=== PATIENT | female | born 1985 | race African-American/Black ===

== ENCOUNTER 2018-03-22 10:55 | Outpatient (CLI) | payer SELFPAY ==
[2018-03-22 19:28] LABS: BASOPHILS # (AUTO) 0.1 10^3/uL (0.0-0.1); BASOPHILS % (AUTO) 0.5 %; EOSINOPHILS # (AUTO) 0.1 10^3/uL (0.0-0.7); EOSINOPHILS % (AUTO) 1.1 %; HGB - HEMOGLOBIN 12.1 g/dL (12.0-16.0); LYMPHOCYTES # (AUTO) 3.6 10^3/uL (1.5-3.5); LYMPHOCYTES % (AUTO) 36.7 %; MEAN CORPUSCULAR HGB CONC 30.9 g/dL (32.0-36.0); MEAN CORPUSCULAR VOLUME 84.3 fL (81.0-99.0); MONOCYTES # (AUTO) 0.5 10^3/uL (0.0-1.0); MONOCYTES % (AUTO) 4.7 %; NEUTROPHILS # (AUTO) 5.5 10^3/uL (1.5-6.6); PLT - PLATELET COUNT 314 10^3/uL (130-450); RED BLOOD COUNT 4.66 10^6/uL (4.20-5.40); RED CELL DISTRIBUTION WIDTH 15.5 % (12.0-15.0); WHITE BLOOD COUNT 9.7 x10^3/uL (4.8-10.8)
[2018-03-22 19:40] LABS: ALBUMIN 3.9 g/dL (3.2-5.5); BILIRUBIN,TOTAL 0.3 mg/dL (0.2-1.0); CALCIUM 8.6 mg/dL (8.5-10.3); CREATININE 0.7 mg/dL (0.4-1.0); TOTAL PROTEIN 7.9 g/dL (6.7-8.2)
== END 2018-03-22 23:59 | disposition home or self-care (01) ==
LOC: LAB.WCP 10:55
PROVIDERS: ATTEND Family Medicine
DX: G93.2 Benign intracranial hypertension (principal)
CPT/HCPCS: 36415; 80053; 84702; 85025

== ENCOUNTER 2018-04-21 13:34 | Outpatient (CLI) | payer OTHER ==
--- NOTE | 2018-04-21 15:07 | CT Report ---
Reason: HEMATURIA Procedure Date: 04/21/2018 Accession Number: [id number] / [id number] Procedure: CT - Abdomen/Pelvis W/O CPT Code: FULL RESULT: EXAM: CT ABDOMEN AND PELVIS (CT KUB) EXAM DATE: 04/21/2018 02:47 PM. CLINICAL HISTORY: Hematuria. COMPARISONS: None. TECHNIQUE: Routine axial helical CT imaging was performed through the abdomen and pelvis without IV contrast. Reconstructions: Coronal and sagittal. In accordance with CT protocol optimization, one or more of the following dose reduction techniques were utilized for this exam: automated exposure control, adjustment of mA and/or KV based on patient size, or use of iterative reconstructive technique. FINDINGS: Lung Bases: Unremarkable. Right Kidney/Ureter: No stones, hydronephrosis, or hydroureter. No perinephric fat stranding. Left Kidney/Ureter: No stones, hydronephrosis, or hydroureter. No perinephric fat stranding. Other Solid Organs: Noncontrast images of the solid organs are grossly unremarkable. Gallbladder/Bile Ducts: Unremarkable. Peritoneal Cavity: No free fluid, free air or brendon adenopathy. Bowel is grossly unremarkable. The patient is status post appendectomy and cholecystectomy. Pelvic Organs: No bladder stones or wall thickening. Noncontrast images of the visualized pelvic organs are unremarkable with the exception of an appropriately positioned intrauterine device. Vasculature: Unremarkable. Other: None. IMPRESSION: No urinary tract stones or obstruction. RADIA
== END 2018-04-21 13:35 | disposition home or self-care (01) ==
LOC: DI 13:34
PROVIDERS: ATTEND Physician Assistant Medical
DX: R31.9 Hematuria, unspecified (principal)
CPT/HCPCS: 74176

== ENCOUNTER 2018-05-02 17:20 | Outpatient (CLI) | payer OTHER ==
[2018-05-02 17:44] LABS: BASOPHILS # (AUTO) 0.1 10^3/uL (0.0-0.1); BASOPHILS % (AUTO) 0.6 %; EOSINOPHILS # (AUTO) 0.1 10^3/uL (0.0-0.7); EOSINOPHILS % (AUTO) 0.9 %; HGB - HEMOGLOBIN 12.4 g/dL (12.0-16.0); LYMPHOCYTES # (AUTO) 3.2 10^3/uL (1.5-3.5); LYMPHOCYTES % (AUTO) 30.4 %; MEAN CORPUSCULAR HEMOGLOBIN 26.1 pg (27.0-31.0); MEAN CORPUSCULAR HGB CONC 31.8 g/dL (32.0-36.0); MEAN CORPUSCULAR VOLUME 82.2 fL (81.0-99.0); MEAN PLATELET VOLUME 9.3 fL (7.9-10.8); MONOCYTES # (AUTO) 0.6 10^3/uL (0.0-1.0); MONOCYTES % (AUTO) 5.6 %; NEUTROPHILS # (AUTO) 6.7 10^3/uL (1.5-6.6); NEUTROPHILS % (AUTO) 62.5 %; PLT - PLATELET COUNT 311 10^3/uL (130-450); RED BLOOD COUNT 4.73 10^6/uL (4.20-5.40); WHITE BLOOD COUNT 10.7 x10^3/uL (4.8-10.8)
[2018-05-02 18:11] LABS: ALBUMIN 3.9 g/dL (3.2-5.5); ALBUMIN/GLOBULIN RATIO 0.9 (1.0-2.2); ALKALINE PHOSPHATASE 135 IU/L (42-121); ALT ALANINE AMINOTRANSFERASE 14 IU/L (10-60); AST ASPARTATE AMINOTRANSFERASE 16 IU/L (10-42); BILIRUBIN,TOTAL < 0.2 mg/dL (0.2-1.0); BUN - BLOOD UREA NITROGEN 14 mg/dL (6-20); CALCIUM 8.8 mg/dL (8.5-10.3); CARBON DIOXIDE - CO2 24 mmol/L (21-32); CHLORIDE 107 mmol/L (101-111); CREATININE 0.8 mg/dL (0.4-1.0); GFR - MDRD 100 (>89); GLUCOSE 106 mg/dL (70-100); LIPASE 36 U/L (22-51); SODIUM 139 mmol/L (135-145); TOTAL PROTEIN 8.3 g/dL (6.7-8.2)
== END 2018-05-02 17:21 | disposition home or self-care (01) ==
LOC: LAB 17:20
PROVIDERS: ATTEND Physician Assistant Medical
DX: R10.32 Left lower quadrant pain (principal)
CPT/HCPCS: 36415; 80053; 83690; 85025

== ENCOUNTER 2018-07-04 16:38 | Outpatient (CLI) | payer OTHER | END 2018-07-04 23:59 | disposition home or self-care (01) | LOC: LAB.R 16:38 | PROVIDERS: ATTEND Physician Assistant Medical | DX: J02.9 Acute pharyngitis, unspecified (principal) | CPT/HCPCS: 87070 ==

== ENCOUNTER 2018-08-12 08:00 | Outpatient (CLI) | payer OTHER | END 2018-08-12 23:59 | disposition home or self-care (01) | LOC: LAB.R 08:00 | PROVIDERS: ATTEND Nurse Practitioner | DX: J06.9 Acute upper respiratory infection, unspecified (principal); R53.83 Other fatigue | CPT/HCPCS: 87070; 87205 ==

== ENCOUNTER 2018-10-11 09:38 | Outpatient (CLI) | payer OTHER | END 2018-10-11 09:39 | disposition home or self-care (01) | LOC: LAB.WCP 09:38 | PROVIDERS: ATTEND Family Medicine | DX: J02.9 Acute pharyngitis, unspecified (principal) | CPT/HCPCS: 87070 ==

== ENCOUNTER 2018-11-09 08:00 | Outpatient (CLI) | payer OTHER ==
[2018-11-09 23:23] LABS: TRICHOMONAS VAGINALIS DNA NEGATIVE (NEGATIVE)
== END 2018-11-09 08:01 | disposition home or self-care (01) ==
LOC: LAB.R 08:00
PROVIDERS: ATTEND Family Medicine
DX: N76.0 Acute vaginitis (principal); N39.0 Urinary tract infection, site not specified
CPT/HCPCS: 87086; 87491; 87591; 87661

== ENCOUNTER 2018-12-11 18:30 | Emergency (ER) | payer OTHER ==
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
[2018-12-11] MEDS ORDERED: ONDANSETRON ODT 4 MG TABLET TL STA (20:03)
[2018-12-11] MEDS ORDERED: MAG HYDROX/AL HYDROX/SIMETH 30 ML UDC PO STA (20:04)
[2018-12-11 20:19] LABS: BILIRUBIN,URINE NEGATIVE (NEGATIVE); GLUCOSE, URINE (UA) NEGATIVE (NEGATIVE); KETONES,URINE (UA) NEGATIVE (NEGATIVE); LEUKOCYTE ESTERASE, URINE NEGATIVE (NEGATIVE); NITRITE,URINE NEGATIVE (NEGATIVE); OCCULT BLOOD,URINE TRACE-INTA (NEGATIVE); PROTEIN,URINE NEGATIVE (NEGATIVE); UROBILINOGEN,URINE 0.2 (NORMAL) E.U./dL (NORMAL)
[2018-12-11 20:21] LABS: CLARITY,URINE CLEAR (CLEAR); HCG UR QUAL NEGATIVE
--- NOTE | 2018-12-11 21:12 | CT Report ---
Reason: frontal contusion; some nausea and visual change Procedure Date: 12/11/2018 Accession Number: [id number] / [id number] Procedure: CT - HEAD WO CPT Code: FULL RESULT: EXAM: CT HEAD EXAM DATE: 12/11/2018 08:47 PM. CLINICAL HISTORY: Frontal contusion; some nausea and visual change. COMPARISON: None. TECHNIQUE: Multiaxial CT images were obtained from the foramen magnum to the vertex. Reformats: Sagittal and coronal. IV contrast: None. In accordance with CT protocol optimization, one or more of the following dose reduction techniques were utilized for this exam: automated exposure control, adjustment of mA and/or KV based on patient size, or use of iterative reconstructive technique. FINDINGS: Parenchyma: No intraparenchymal hemorrhage. No evidence of mass, midline shift, or CT findings of infarction. Beauchamp-white differentiation is distinct. Extraaxial Spaces: Normal for age. No subdural or epidural collections identified. Ventricles: Normal in size and position. Sinuses and Orbits: Imaged paranasal sinuses, orbits, and mastoids show no significant abnormality. Bones: No evidence of fracture or calvarial defect. Other: None. IMPRESSION: 1. Negative for an acute or focal intracranial abnormality. RADIA
[2018-12-11] MEDS ORDERED: ONDANSETRON ODT 4 MG Prepack 2 TL PRN (21:49)
[2018-12-11 22:00] VITALS: BP 137/90
== END 2018-12-11 22:01 | disposition home or self-care (01) ==
LOC: ED 18:30
DX: S06.0X0A Concussion without loss of consciousness, initial encounter (principal); S00.03XA Contusion of scalp, initial encounter; Y04.2XXA Assault by strike against or bumped into by another person, initial encounter; Y92.009 Unspecified place in unspecified non-institutional (private) residence as the place of occurrence of the external cause; I10 Essential (primary) hypertension
CPT/HCPCS: 70450; 81003; 81025; 99284; A9270; Q0162; 81001; 87086

== ENCOUNTER 2018-12-13 15:32 | Outpatient (CLI) | payer OTHER ==
[2018-12-13 21:48] LABS: TRICHOMONAS VAGINALIS DNA NEGATIVE (NEGATIVE)
== END 2018-12-13 23:59 | disposition home or self-care (01) ==
LOC: LAB.R 15:32
PROVIDERS: ATTEND Family Medicine
DX: A56.09 Other chlamydial infection of lower genitourinary tract (principal)
CPT/HCPCS: 87491; 87591; 87661

== ENCOUNTER 2019-01-18 08:00 | Outpatient (CLI) | payer OTHER ==
[2019-01-18 18:30] LABS: BASOPHILS % (AUTO) 0.3 %; EOSINOPHILS # (AUTO) 0.2 10^3/uL (0.0-0.7); EOSINOPHILS % (AUTO) 1.3 %; LYMPHOCYTES # (AUTO) 3.4 10^3/uL (1.5-3.5); LYMPHOCYTES % (AUTO) 29.3 %; MEAN CORPUSCULAR HEMOGLOBIN 26.1 pg (27.0-31.0); MEAN CORPUSCULAR HGB CONC 30.8 g/dL (32.0-36.0); MEAN CORPUSCULAR VOLUME 84.7 fL (81.0-99.0); MEAN PLATELET VOLUME 11.8 fL (7.9-10.8); MONOCYTES # (AUTO) 0.7 10^3/uL (0.0-1.0); MONOCYTES % (AUTO) 6.2 %; NEUTROPHILS # (AUTO) 7.2 10^3/uL (1.5-6.6); NEUTROPHILS % (AUTO) 62.5 %; PLT - PLATELET COUNT 323 10^3/uL (130-450); RED BLOOD COUNT 4.59 10^6/uL (4.20-5.40); RED CELL DISTRIBUTION WIDTH 14.2 % (12.0-15.0); WHITE BLOOD COUNT 11.5 x10^3/uL (4.8-10.8)
[2019-01-18 18:57] LABS: ALBUMIN 3.9 g/dL (3.2-5.5); ALBUMIN/GLOBULIN RATIO 0.9 (1.0-2.2); BILIRUBIN,TOTAL 0.3 mg/dL (0.2-1.0); CALCIUM 9.1 mg/dL (8.5-10.3); CREATININE 0.9 mg/dL (0.4-1.0); TOTAL PROTEIN 8.3 g/dL (6.7-8.2)
== END 2019-01-18 23:59 | disposition home or self-care (01) ==
LOC: LAB.WCP 08:00
PROVIDERS: ATTEND Family Medicine
DX: R07.89 Other chest pain (principal)
CPT/HCPCS: 36415; 80053; 85025

== ENCOUNTER 2019-01-18 09:00 | Outpatient (CLI) | payer OTHER ==
--- NOTE | 2019-01-19 15:33 | XRAY Report ---
Reason: CHEST PAIN Procedure Date: 01/18/2019 Accession Number: [id number] / [id number] Procedure: WCP - Chest 2 View X-Ray CPT Code: 66199 FULL RESULT: EXAM: CHEST RADIOGRAPHY EXAM DATE: 01/18/2019 02:10 PM. CLINICAL HISTORY: CHEST PAIN. COMPARISON: CHEST 2 VIEW 08/11/2018 4:07 PM. TECHNIQUE: 2 views. FINDINGS: Lungs/Pleura: No focal opacities evident. No pleural effusion. No pneumothorax. Normal volumes. Mediastinum: Heart and mediastinal contours are unremarkable. Other: None. IMPRESSION: Normal 2-view chest radiography. RADIA
== END 2019-01-18 23:59 | disposition home or self-care (01) ==
LOC: DI.WCP 09:00 → EDSTATUS 13:44 → DI.WCP 23:59
PROVIDERS: ATTEND Family Medicine
DX: R07.89 Other chest pain (principal)
CPT/HCPCS: 71046

== ENCOUNTER 2019-02-27 09:00 | Outpatient (CLI) | payer OTHER ==
[2019-02-27 21:48] LABS: TRICHOMONAS VAGINALIS DNA NEGATIVE (NEGATIVE)
== END 2019-02-27 23:59 | disposition home or self-care (01) ==
LOC: LAB.R 09:00
PROVIDERS: ATTEND Family Medicine
DX: Z11.3 Encounter for screening for infections with a predominantly sexual mode of transmission (principal)
CPT/HCPCS: 87491; 87591; 87661

== ENCOUNTER 2019-02-28 08:00 | Outpatient (CLI) | payer OTHER ==
[2019-03-01 12:32] LABS: HEPATITIS C ANTIBODY NON-REACTIVE (NON-REACTIVE)
[2019-03-01 14:51] LABS: HIV AG/AB 4TH GEN NON-REACTIVE (NON-REACTIVE)
[2019-03-03 12:57] LABS: HSV 2 IGG TYPE SPECIFIC AB >23.00 index
== END 2019-02-28 08:01 | disposition home or self-care (01) ==
LOC: LAB.WCP 08:00
PROVIDERS: ATTEND Family Medicine
DX: Z11.3 Encounter for screening for infections with a predominantly sexual mode of transmission (principal)
CPT/HCPCS: 36415; 81599; 86592; 86695; 86696; 86803; 87389

== ENCOUNTER 2019-05-19 15:20 | Outpatient (CLI) | payer BC, OTHER | END 2019-05-19 23:59 | disposition home or self-care (01) | LOC: LAB.R 15:20 | PROVIDERS: ATTEND Family Medicine | DX: N39.0 Urinary tract infection, site not specified (principal) | CPT/HCPCS: 87086 ==

== ENCOUNTER 2019-05-22 10:15 | Outpatient (CLI) | payer BC, OTHER | END 2019-05-22 10:16 | disposition home or self-care (01) | LOC: LAB.WCP 10:15 | PROVIDERS: ATTEND Family Medicine | DX: N39.0 Urinary tract infection, site not specified (principal) | CPT/HCPCS: 87086 ==

== ENCOUNTER 2019-08-11 15:13 | Outpatient (CLI) | payer BC, OTHER ==
[2019-08-11 17:38] LABS: CALCIUM 8.7 mg/dL (8.5-10.3); CREATININE 0.9 mg/dL (0.4-1.0)
== END 2019-08-11 23:59 | disposition home or self-care (01) ==
LOC: LAB.WCP 15:13
PROVIDERS: ATTEND Family Medicine
DX: G93.2 Benign intracranial hypertension (principal)
CPT/HCPCS: 36415; 80048

== ENCOUNTER 2019-08-17 08:00 | Outpatient (CLI) | payer BC, OTHER ==
[2019-08-17 17:50] LABS: BASOPHILS # (AUTO) 0.1 10^3/uL (0.0-0.1); BASOPHILS % (AUTO) 0.4 %; EOSINOPHILS # (AUTO) 0.2 10^3/uL (0.0-0.7); EOSINOPHILS % (AUTO) 1.2 %; HGB - HEMOGLOBIN 12.4 g/dL (12.0-16.0); LYMPHOCYTES % (AUTO) 37.5 %; MEAN CORPUSCULAR HEMOGLOBIN 27.3 pg (27.0-31.0); MEAN CORPUSCULAR HGB CONC 32.3 g/dL (32.0-36.0); MEAN CORPUSCULAR VOLUME 84.6 fL (81.0-99.0); MEAN PLATELET VOLUME 11.9 fL (7.9-10.8); MONOCYTES # (AUTO) 0.6 10^3/uL (0.0-1.0); MONOCYTES % (AUTO) 4.7 %; NEUTROPHILS # (AUTO) 7.4 10^3/uL (1.5-6.6); NEUTROPHILS % (AUTO) 55.7 %; PLT - PLATELET COUNT 327 10^3/uL (130-450); RED BLOOD COUNT 4.54 10^6/uL (4.20-5.40); RED CELL DISTRIBUTION WIDTH 13.9 % (12.0-15.0); WHITE BLOOD COUNT 13.3 x10^3/uL (4.8-10.8)
[2019-08-17 18:06] LABS: BILIRUBIN,TOTAL 0.2 mg/dL (0.2-1.0); CALCIUM 8.8 mg/dL (8.5-10.3); CREATININE 0.8 mg/dL (0.4-1.0); CRP - C-REACTIVE PROTEIN 2.5 mg/dL (0-1.0); TOTAL PROTEIN 8.2 g/dL (6.7-8.2)
== END 2019-08-17 23:59 | disposition home or self-care (01) ==
LOC: LAB.WCP 08:00
PROVIDERS: ATTEND Family Medicine
DX: R10.2 Pelvic and perineal pain (principal)
CPT/HCPCS: 36415; 80053; 85025; 86140

== ENCOUNTER 2019-08-17 19:02 | Outpatient (CLI) | payer BC, OTHER ==
--- NOTE | 2019-08-17 20:44 | Ultrasound Report ---
Reason: ACUTE PELVIC PAIN Procedure Date: 08/17/2019 Accession Number: [id number] / [id number] Procedure: US - Pelvic w/Transvaginal CPT Code: Final Report FULL RESULT: EXAM: PELVIC ULTRASOUND EXAM DATE: 08/17/2019 07:16 PM. CLINICAL HISTORY: ACUTE PELVIC PAIN. COMPARISON: None. TECHNIQUE: Realtime transabdominal pelvic scan performed to identify the uterus and adnexa and as an overview of other pelvic structures, followed by transvaginal scan to provide greater detail of the uterus and adnexa, with static image documentation. FINDINGS: Uterus: 8.1 x 4 x 5.2 cm, volume 87.6 cc. Anteverted position. Normal overall size and echotexture. Masses: None. Endometrium: 4 mm. IUD Cervix: Nabothian cysts Right Ovary: 3.1 x 1.2 x 2.2 cm, volume 4.3 cc. Normal echotexture and blood flow. Left Ovary: 2.3 x 1.1 x 1.7 cm, volume 2.2 cc. Normal echotexture and blood flow. Free Fluid: None. Other: None. IMPRESSION: 1. IUD appropriate position 2. Normal pelvic ultrasound. RADIA
== END 2019-08-17 19:03 | disposition home or self-care (01) ==
LOC: DI 19:02
PROVIDERS: ATTEND Family Medicine
DX: R10.2 Pelvic and perineal pain (principal); Z97.5 Presence of (intrauterine) contraceptive device
CPT/HCPCS: 36415; 76830; 76856; 80053; 85025; 86140

== ENCOUNTER 2019-08-31 16:01 | Outpatient (CLI) | payer BC, OTHER ==
[2019-08-31] MEDS ORDERED: IOVERSOL 320 100 ML VIAL IVP ONE ×2 (16:07→17:33)
[2019-08-31] MEDS ORDERED: IOVERSOL 320 50 ML VIAL ONE (16:07)
[2019-08-31] MEDS ORDERED: IOVERSOL 320 50 ML VIAL PO ONE (17:33)
--- NOTE | 2019-08-31 22:19 | CT Report ---
Reason: ABD PAIN LLQ Procedure Date: 08/31/2019 Accession Number: [id number] / [id number] Procedure: CT - Abdomen/Pelvis W CPT Code: Final Report FULL RESULT: EXAM: CT ABDOMEN AND PELVIS EXAM DATE: 08/31/2019 05:28 PM. CLINICAL HISTORY: ABD PAIN LLQ. COMPARISONS: ABDOMEN/PELVIS W/O 04/21/2018 2:31 PM. TECHNIQUE: Routine helical CT imaging was performed through the abdomen and pelvis. IV contrast: 100 cc OPTIRAY 320. Enteric contrast: Yes. Reconstructions: Coronal and sagittal. In accordance with CT protocol optimization, one or more of the following dose reduction techniques were utilized for this exam: automated exposure control, adjustment of mA and/or KV based on patient size, or use of iterative reconstructive technique. FINDINGS: ABDOMEN: Lung Bases: Incompletely included lower lungs are grossly clear. Heart size is within normal limits. No basilar effusions. Liver: Unremarkable. Spleen: Unremarkable. Pancreas: Unremarkable. Gallbladder/Bile Ducts: Gallbladder is unremarkable. Biliary tree is normal caliber. Adrenal Glands: Unremarkable. Kidneys: No mass, calculi, or hydronephrosis. Peritoneum/Mesentery/Bowel: No free fluid, free air, or collection. No intestinal obstruction or inflammation. Status post appendectomy. Lymph nodes: No mesenteric, periportal, or retroperitoneal lymphadenopathy. Vasculature: Abdominal aorta is nonaneurysmal. Portal vein is patent. Hepatic veins are patent. PELVIS: The bladder is unremarkable for the degree of distention. IUD present within the uterus. No pelvic lymphadenopathy. Bones: No suspicious osseous lesions. IMPRESSION: No acute abnormalities. RADIA
== END 2019-08-31 16:02 | disposition home or self-care (01) ==
LOC: DI 16:01
PROVIDERS: ATTEND Family Medicine
DX: R10.32 Left lower quadrant pain (principal)
CPT/HCPCS: 74177; Q9967

== ENCOUNTER 2019-10-24 10:44 | Outpatient (CLI) | payer BC, OTHER ==
--- NOTE | 2019-10-24 10:56 | XRAY Report ---
Reason: RIGHT FOOT PAIN Procedure Date: 10/24/2019 Accession Number: [id number] / [id number] Procedure: WCP - Foot 3 View RT CPT Code: Final Report FULL RESULT: PROCEDURE: Foot 3 View RT INDICATIONS: RIGHT FOOT PAIN TECHNIQUE: 3 views of the foot were acquired. COMPARISON: None FINDINGS: Bones: No fractures or dislocations. No suspicious bony lesions. Soft tissues: No tibiotalar joint effusion. Achilles tendon appears normal. IMPRESSION: No acute finding. MRI could be considered to evaluate for potential soft tissue injury. Reviewed by: Konrad White MD on 10/24/2019 10:55 AM PDT Approved by: Konrad White MD on 10/24/2019 10:55 AM PDT Station ID: [id number]
== END 2019-10-24 23:59 | disposition home or self-care (01) ==
LOC: DI.WCP 10:44
PROVIDERS: ATTEND Family Medicine
DX: M79.671 Pain in right foot (principal)

== ENCOUNTER 2019-11-09 17:53 | Outpatient (CLI) | payer BC, OTHER ==
--- NOTE | 2019-11-10 11:27 | XRAY Report ---
PROCEDURE: Foot 3 View RT INDICATIONS: Foot pain, right TECHNIQUE: 3 views of the foot were acquired. COMPARISON: 10/24/2019. FINDINGS: Bones: No fractures or dislocations. No suspicious bony lesions. Soft tissues: No tibiotalar joint effusion. Achilles tendon appears normal. IMPRESSION: No fracture. No osseous lesion. If there is continued clinical concern for pathology, then advanced imaging (CT, MR, bone scan) should be considered for further evaluation. Reviewed by: Magda Servin MD, PhD on 11/10/2019 11:26 AM PDT Approved by: Magda Servin MD, PhD on 11/10/2019 11:26 AM PDT Station ID: [id number]
== END 2019-11-09 17:54 | disposition home or self-care (01) ==
LOC: DI 17:53
PROVIDERS: ATTEND Physician Assistant
DX: M79.671 Pain in right foot (principal)

== ENCOUNTER 2019-12-13 10:20 | Outpatient (CLI) | payer BC, OTHER | END 2019-12-13 23:59 | disposition home or self-care (01) | LOC: COV 10:20 | PROVIDERS: ATTEND Nurse Practitioner Family | DX: Z20.828 Contact with and (suspected) exposure to other viral communicable diseases (principal) ==

== ENCOUNTER 2020-12-23 08:00 | Outpatient (CLI) | payer BC, OTHER ==
[2020-12-23 17:55] LABS: BASOPHILS % (AUTO) 0.3 %; EOSINOPHILS # (AUTO) 0.1 10^3/uL (0.0-0.7); HCT - HEMATOCRIT 39.5 % (37.0-47.0); HGB - HEMOGLOBIN 12.3 g/dL (12.0-16.0); LYMPHOCYTES # (AUTO) 3.8 10^3/uL (1.5-3.5); LYMPHOCYTES % (AUTO) 30.1 %; MEAN CORPUSCULAR HEMOGLOBIN 26.4 pg (27.0-31.0); MEAN CORPUSCULAR HGB CONC 31.1 g/dL (32.0-36.0); MEAN CORPUSCULAR VOLUME 84.8 fL (81.0-99.0); MEAN PLATELET VOLUME 12.2 fL (7.9-10.8); MONOCYTES # (AUTO) 0.6 10^3/uL (0.0-1.0); NEUTROPHILS # (AUTO) 7.9 10^3/uL (1.5-6.6); NEUTROPHILS % (AUTO) 63.3 %; PLT - PLATELET COUNT 296 10^3/uL (130-450); RED BLOOD COUNT 4.66 10^6/uL (4.20-5.40); RED CELL DISTRIBUTION WIDTH 13.4 % (12.0-15.0); WHITE BLOOD COUNT 12.5 x10^3/uL (4.8-10.8)
[2020-12-23 18:21] LABS: BILIRUBIN,TOTAL 0.6 mg/dL (0.2-1.0); CALCIUM 9.1 mg/dL (8.5-10.3); CREATININE 0.8 mg/dL (0.4-1.0); POTASSIUM 3.5 mmol/L (3.5-5.0)
[2020-12-23 18:23] LABS: HCG,QUALITATIVE BLOOD NEGATIVE
[2020-12-23 18:27] LABS: THYROID STIMULATING HORMONE 2.42 uIU/mL (0.34-5.60)
== END 2020-12-23 23:59 | disposition home or self-care (01) ==
LOC: LAB.WCP 08:00
PROVIDERS: ATTEND Family Medicine
DX: N92.0 Excessive and frequent menstruation with regular cycle (principal)
CPT/HCPCS: 36415; 80053; 84443; 84703; 85025

== ENCOUNTER 2021-01-09 08:00 | Outpatient (CLI) | payer BC, OTHER ==
[2021-01-09 20:10] LABS: HCG,QUALITATIVE BLOOD NEGATIVE
== END 2021-01-09 23:59 | disposition home or self-care (01) ==
LOC: LAB.WCP 08:00
PROVIDERS: ATTEND Family Medicine
DX: N64.3 Galactorrhea not associated with childbirth (principal)
CPT/HCPCS: 36415; 84146; 84703

== ENCOUNTER 2021-02-07 12:31 | Outpatient (CLI) | payer BC, OTHER ==
--- NOTE | 2021-02-10 08:48 | Ultrasound Report ---
LIMITED ULTRASOUND OF LEFT BREAST AND AXILLA: 02/07/2021 CLINICAL: Patient returns today to evaluate a focal asymmetry in the left breast. Comparison is made to exam dated: 02/07/2021 mammogram - [facility]. Color flow and real-time ultrasound of the left breast 3-4 o'clock, and axilla regions were performe d. Beauchamp scale images of the real-time examination were reviewed. There is a 1.3 cm x 1 cm x 0.3 cm oval/ tubular mass in the left breast at 4 o'clock posterior depth 11 cm from the nipple. This oval mass is oriented parallel to the skin, hypoechoic, with possible ti ny fatty hilum and no posterior acoustic shadowing or enhancement. This correlates with the incident al mammography finding. IMPRESSION: PROBABLY BENIGN The 1.3 cm x 1 cm x 0.3 cm oval mass in the left breast most likely is a lymph node and is probably b enign. A follow-up left mammogram and an ultrasound in 6 months is recommended to demonstrate stability. Findings and recommendations were conveyed to the patient at time of exam. This exam was interpreted at Station ID: [id number]. Electronically Signed By: Charlotte rosario/:02/07/2021 15:30:47 Ultrasound BI-RADS: 3 Probably benign BI-RADS CATEGORY: (3) - 3 Mammo and [place] [id number] 6 month follow-up LATERALITY: (L)
--- NOTE | 2021-02-10 08:48 | Mammography Report ---
BILATERAL DIGITAL DIAGNOSTIC MAMMOGRAM 3D/2D: 02/07/2021 CLINICAL: Palpable right breast lump by physician. Baseline exam. No prior exams were available for comparison. The tissue of both breasts is heterogeneously dense. T his may lower the sensitivity of mammography. There is a 6 mm oval focal asymmetry in the right breast at 5 o'clock posterior depth. This is seen in additional views. This correlates as palpated. There also is a possible 1.2 cm irregular equal density asymmetry with a spiculated margin in the rig ht breast at 11 o'clock middle depth. This is not seen in additional views. Additionally, there is a biopsy proven benign 1.4 cm oval focal asymmetry in the right breast at 1 o' clock middle depth. There is a biopsy clip associated with the focal asymmetry. There is a 7 mm oval equal density focal asymmetry with an obscured and circumscribed margin in the l eft breast at 4 o'clock middle depth. This is seen in additional views. No other significant masses or calcifications are seen in either breast. IMPRESSION: INCOMPLETE: NEEDS ADDITIONAL IMAGING EVALUATION The 6 mm oval focal asymmetry in the right breast at 5 o'clock posterior depth most likely is a cyst or a lymph node and is indeterminate. An ultrasound is recommended. The possible 1.2 cm irregular equal density asymmetry in the right breast at 11 o'clock middle depth is indeterminate. An ultrasound is recommended. The 7 mm oval equal density focal asymmetry in the left breast at 4 o'clock middle depth is indetermi radha. An ultrasound is recommended. Bilateral breast ultrasound is recommended for full evaluation of these areas. This was performed imm ediately following this exam. This exam was interpreted at Station ID: [id number]. NOTE: For mammograms, a report in lay terms will be sent to the patient. Approximately 15% of breast malignancies will not be visualized mammographically. In the management of a palpable breast mass, a negative mammogram must not discourage biopsy of a clinically suspicious lesion. Electronically Signed By: Charlotte rosario/:02/07/2021 14:16:51 ACR BI-RADS Category 0: Incomplete 3340F PARENCHYMAL PATTERN: (D) - The breast(s) demonstrate(s) heterogeneously dense fibroglandular parenchy ma. BI-RADS CATEGORY: (0) - 0 Ultrasound [id number] Immediate follow-up LATERALITY: (B)
--- NOTE | 2021-02-10 08:48 | Ultrasound Report ---
LIMITED ULTRASOUND OF RIGHT BREAST AND AXILLA: 02/07/2021 CLINICAL: Patient returns today to evaluate a focal asymmetry in the right breast. Palpable right shahram ast lumps and focal pain. Comparison is made to exam dated: 02/07/2021 mammogram - [facility]. Color flow and real-time ultrasound of the right breast 3-4 o'clock, 10-11 o'clock, and axilla region s were performed. Beauchamp scale images of the real-time examination were reviewed. There are a few intradermal cysts with internal debris and increased adjacent vascularity on the righ t breast at 4 o'clock in the middle depth that correlates with palpable abnormality. THe larger nat ures up to 0.6 cm and indents upon the underlying subcutaneous fat. There is a 1.2 cm x 1.1 cm x 0.4 cm oval area of fibroglandular tissue in the right breast at 11 o'cl ock posterior depth 8 cm from the nipple with the long axis parallel to the skin. This correlates wi th mammography findings. Color flow imaging demonstrates that there is no vascularity present. IMPRESSION: PROBABLY BENIGN The palpable abnormality in the right breast corresponds to skin lesions consistent with folliculitis and appear benign. The largest appears inflammed and does not extend into breast tissue. The incidentally noted 1.2 cm oval area of fibroglandular tissue in the right breast most likely is a focal tissue island or fibroadenoma and is probably benign. A follow-up right mammogram and an ultrasound in 6 months is recommended to demonstrate stability. Findings and recommendations were conveyed to the patient at time of exam. This exam was interpreted at Station ID: [id number]. Electronically Signed By: Charlotte rosario/:02/07/2021 15:38:17 Ultrasound BI-RADS: 3 Probably benign BI-RADS CATEGORY: (3) - 3 Mammo and US [id number] 6 month follow-up LATERALITY: (R)
== END 2021-02-07 12:32 | disposition home or self-care (01) ==
LOC: DI 12:31
PROVIDERS: ATTEND Family Medicine
DX: N63.14 Unspecified lump in the right breast, lower inner quadrant (principal); R92.8 Other abnormal and inconclusive findings on diagnostic imaging of breast; U07.1 COVID-19; J12.82 Pneumonia due to coronavirus disease 2019

== ENCOUNTER 2021-02-07 12:49 | Outpatient (CLI) | payer BC, OTHER ==
--- NOTE | 2021-02-07 15:47 | XRAY Report ---
PROCEDURE: Chest 2 View X-Ray INDICATIONS: COVID-19 CORONAVIRUS PNEUMONIA TECHNIQUE: 2 view(s) of the chest. COMPARISON: None. FINDINGS: Surgical changes and devices: None. Lungs and pleura: No pleural effusions or pneumothorax. Lungs are clear. Mediastinum: Mediastinal contours are normal. Heart size is normal. Bones and chest wall: No suspicious bony abnormalities. Soft tissues appear unremarkable. IMPRESSION: No acute cardiopulmonary pathology. Reviewed by: Marcell Stephens MD on 02/07/2021 3:46 PM PDT Approved by: Marcell Stephens MD on 02/07/2021 3:46 PM PDT Station ID: [id number]
== END 2021-02-07 12:50 | disposition home or self-care (01) ==
LOC: DI 12:49
PROVIDERS: ATTEND Family Medicine
DX: U07.1 COVID-19 (principal); J12.82 Pneumonia due to coronavirus disease 2019

== ENCOUNTER 2021-04-03 08:00 | Outpatient (CLI) | payer BC, OTHER | END 2021-04-03 23:59 | LOC: LAB.N 08:00 | PROVIDERS: ATTEND Physician Assistant Medical | DX: J02.9 Acute pharyngitis, unspecified (principal); Z20.822 Contact with and (suspected) exposure to COVID-19 ==

== ENCOUNTER 2021-05-06 17:18 | Outpatient (CLI) | payer BC, OTHER | END 2021-05-06 17:19 | disposition EMS.NT | LOC: EMS 17:18 | DX: Z04.1 Encounter for examination and observation following transport accident (principal); I10 Essential (primary) hypertension ==

== ENCOUNTER 2022-01-27 13:44 | Outpatient (CLI) | payer OTHER ==
--- NOTE | 2022-01-28 09:59 | MRI Report ---
PROCEDURE: Lumbar Spine W/O INDICATIONS: LUMBAGO WITH SCIATICA TECHNIQUE: Noncontrast sagittal T1 spin echo and T2 fast echo, sagittal STIR, axial T1 and T2 fast spin echo thr ough the lumbar spine. In cases with scoliosis, additional coronal T2 fast spin echo may be performe d. COMPARISON: None. FINDINGS: Image quality: Excellent. Alignment and Curvature: There is normal bony alignment. Bone Marrow: Marrow is of normal overall signal. No acute vertebral body compression fractures. Spinal Cord: Conus medullaris terminates at the normal level. Visualized cord demonstrates normal s ignal and size. Regional: No paravertebral masses. T12-L1: Normal in appearance. L1-L2: Normal in appearance. L2-L3: Normal in appearance. L3-L4: Normal in appearance. L4-L5: Disc desiccation and disc height loss with diffuse disc bulge with disc material abutting bu t not definitely displacing the descending L5 nerve roots. Foraminal components of the disc bulge con tribute to mild bilateral neural foraminal narrowing. L5-S1: Disc desiccation and disc height loss. Diffuse disc bulge with displacement of the descendin g S1 nerve roots and both subarticular zones. No neural foraminal narrowing. IMPRESSION: Moderate subarticular zone stenosis at L5-S1 with of the descending S1 nerve roots by bulging disc ma terial. Correlate for any corresponding radicular symptoms. Reviewed by: Konrad White MD on 01/28/2022 9:57 AM PDT Approved by: Konrad White MD on 01/28/2022 9:57 AM PDT Station ID: [id number]
== END 2022-01-27 13:45 | disposition home or self-care (01) ==
LOC: DI 13:44
PROVIDERS: ATTEND Nurse Practitioner Family
DX: M51.36 Other intervertebral disc degeneration, lumbar region (principal); M48.061 Spinal stenosis, lumbar region without neurogenic claudication; M51.17 Intervertebral disc disorders with radiculopathy, lumbosacral region

== ENCOUNTER 2022-04-14 13:10 | Outpatient (CLI) | payer OTHER ==
[2022-04-14 14:13] VITALS: BP 120/68
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
== END 2022-04-14 13:11 | disposition home or self-care (01) ==
LOC: SC 13:10
PROVIDERS: ATTEND Nurse Practitioner Family
DX: G47.10 Hypersomnia, unspecified (principal); G47.8 Other sleep disorders; R51.9 Headache, unspecified; R06.83 Snoring; R06.81 Apnea, not elsewhere classified; I10 Essential (primary) hypertension; E66.01 Morbid (severe) obesity due to excess calories; Z68.43 Body mass index [BMI] 50.0-59.9, adult
CPT/HCPCS: 99203; 99212

== ENCOUNTER 2022-04-17 20:36 | Outpatient (CLI) | payer OTHER | END 2022-04-17 20:37 | disposition home or self-care (01) | LOC: SC 20:36 | PROVIDERS: ATTEND Nurse Practitioner Family | DX: G47.33 Obstructive sleep apnea (adult) (pediatric) (principal) | CPT/HCPCS: 95810 ==

== ENCOUNTER 2022-04-30 11:29 | Outpatient (CLI) | payer OTHER ==
--- NOTE | 2022-04-30 11:08 | SLEEP CARE CONSULTATION ---
Information from patient questionnaire entered by Namita Newsome. I have reviewed and concur with the information entered by Namita Newsome. This document represents the service I personally performed and the decisions made by , Malia Vivas ARNP. History of Present Illness Service Date and Time: 04/30/2022 1100 Initial [place] Sleepiness Scale score: 5 (04/14/22) Current [place] Sleepiness Scale score: 6 (04/30/22) Additional HPI information: MAYTE CASTRO returns via video telehealth visit for follow up and results of the recently performed polysomnography. I explained the pathophysiology behind obstructive sleep apnea. We then spent quite a bit of time discussing different treatment options. For mild obstructive sleep apnea, surgery and oral appliance are alternatives to nasal CPAP therapy but in moderate or severe cases, nasal CPAP is the most effective and reliable treatment. I reviewed the impact of weight changes on sleep apnea and strongly recommended losing weight. After some discussion, the patient opted to go with the nasal CPAP therapy. Nasal autoCPAP set at 4-15 cmH20 will be ordered with rationale explained. A manual titration study will be ordered if unable to find optimal pressure with office adjustments. I explained how CPAP machine works and what to expect when using the machine. Using CPAP every night in order to get used to it was emphasized. Patient advised to put CPAP mask on before getting into bed so as not to fall asleep without CPAP. To assist acclimation to CPAP use, it could also be used for a short time during day while reading or watching TV. The patient was instructed t o call the CPAP supplier to discuss any mechanical problem that may occur. If the mask given is uncomfortable or is difficult to keep on through the night even with adjustment, contact the CPAP supplier as many will replace with another mask style if notified before 30 days. If snoring or perceives is not getting enough air or too much air from the machine, notify this office. Patient does not drink alcohol. Patient was cautioned about risks of drowsy driving until sleepiness symptoms resolve. Patient denies drowsy driving. Sleep Study - Results Type of Sleep Study: Polysomnography (COMPLETED 04/17/22) Prior sleep studies: No Polysomnography/Home Sleep Study results: IMPRESSION: The quality of the study is good. The patient had normal sleep efficiency. Despite severe sleep fragmentation, the sleep stage distribution was normal. Respiratory monitoring showed very severe obstructive sleep apnea-hypopnea (AHI = 67.6) associated with frequent arousals, oxyhemoglobin desaturation and severe hypoxia (neelam oxygen saturation of 49%). The respiratory events occurred independently of sleep stage and body position (supine AHI = 77.0; non-supine = 54.77). Snore was loud in intensity. There was no significant periodic leg movement of sleep. Cardiac rhythm was normal sinus rhythm without significant arrhythmia. No abnormal behavior (parasomnia) observed during the night. Allergies and Home Medications Drug allergies reviewed: Yes (as listed in EMR) Home medication list reviewed: Yes (no changes) Review of Systems Review of systems same as previous: Yes (no changes) Physical Exam Vital signs obtained and entered by: VIA PHONE Height: 5 ft 2 in (PER PT) Weight: 292 lb (PER PT) Body Mass Index: 53.4 BMI Classification: Morbidly Obese Impression and Plan 1. Obstructive Sleep Apnea-Hypopnea Syndrome, very severe, with lowest oxygen saturation of 49%. Obviously this is the cause of the patients symptoms of unrefreshed sleep, and excessive daytime sleepiness. Positive pressure therapy could benefit hypertension and migraines. As mentioned above, the patient will be started on nasal autoCPAP therapy with pressure set at 4-15 cmH2O. Compliance guidelines also reviewed. A copy of compliance guidelines will be given for r anel at check out. 2. Hypoxemia, severe, with a neelam oxygen saturation of 49% and 158.3 minutes spent under 90%. Her baseline oxygen saturation was low normal with an average oxygen saturation of 88%. 3. Obesity, unspecified. Currently patients BMI is 53.4. Obesity increases the risk of apnea, CPAP pressure requirements and overall health risks especially cardiovascular and diabetes. Thus patient is advised to lose weight. * Nasal auto CPAP therapy, pressure at 4-15 cm H2O, urgent setup due to severe hypoxemia noted during study. * Attempt to lose weight. * Avoid alcohol consumption near bedtime. * Avoid supine sleep until using CPAP. * The patient is again cautioned about driving until sleepiness completely resolves. * Return one month after CPAP obtained. I will assess response to therapy and compliance at that time. Counseling Topics: Weight loss health impact Visit Type: Telehealth Video Video Type: Doximity Patient Location: Home Location of Provider: Office Patient agrees and consents to this telehealth visit type: Yes Patient agrees to have their insurance billed: Yes Time Spent with Patient (minutes): 15 Provider Statement: I spent 100% of the Telehealth Video Call with the patient with greater than 50% spent counseling the patient and coordination of care.
== END 2022-04-30 11:30 | disposition home or self-care (01) ==
LOC: SC 11:29
PROVIDERS: ATTEND Nurse Practitioner Family
DX: G47.33 Obstructive sleep apnea (adult) (pediatric) (principal); R09.02 Hypoxemia; E66.01 Morbid (severe) obesity due to excess calories; Z68.43 Body mass index [BMI] 50.0-59.9, adult

== ENCOUNTER 2022-06-15 08:11 | Outpatient (CLI) | payer OTHER ==
[2022-06-15 12:28] LABS: BASOPHILS % (AUTO) 0.4 %; EOSINOPHILS # (AUTO) 0.2 10^3/uL (0.0-0.7); EOSINOPHILS % (AUTO) 1.5 %; HCT - HEMATOCRIT 41.2 % (37.0-47.0); HGB - HEMOGLOBIN 12.3 g/dL (12.0-16.0); LYMPHOCYTES # (AUTO) 3.8 10^3/uL (1.5-3.5); LYMPHOCYTES % (AUTO) 37.1 %; MEAN CORPUSCULAR HEMOGLOBIN 25.9 pg (27.0-31.0); MEAN CORPUSCULAR HGB CONC 29.9 g/dL (32.0-36.0); MEAN CORPUSCULAR VOLUME 86.9 fL (81.0-99.0); MEAN PLATELET VOLUME 12.7 fL (7.9-10.8); MONOCYTES # (AUTO) 0.5 10^3/uL (0.0-1.0); MONOCYTES % (AUTO) 5.2 %; NEUTROPHILS # (AUTO) 5.6 10^3/uL (1.5-6.6); NEUTROPHILS % (AUTO) 55.5 %; PLT - PLATELET COUNT 275 10^3/uL (130-450); RED BLOOD COUNT 4.74 10^6/uL (4.20-5.40); RED CELL DISTRIBUTION WIDTH 13.6 % (12.0-15.0); WHITE BLOOD COUNT 10.1 x10^3/uL (4.8-10.8)
[2022-06-15 13:18] LABS: ALBUMIN 3.8 g/dL (3.2-5.5); ALKALINE PHOSPHATASE 121 IU/L (42-121); ALT ALANINE AMINOTRANSFERASE 15 IU/L (10-60); AST ASPARTATE AMINOTRANSFERASE 16 IU/L (10-42); BILIRUBIN,TOTAL 0.6 mg/dL (0.2-1.0); BUN - BLOOD UREA NITROGEN 13 mg/dL (6-20); CALCIUM 8.7 mg/dL (8.5-10.3); CARBON DIOXIDE - CO2 23 mmol/L (21-32); CHLORIDE 108 mmol/L (101-111); CHOL/HDL RATIO 3.2 (<4.4); CHOLESTEROL 167 mg/dL; CREATININE 0.8 mg/dL (0.4-1.0); GFR - MDRD 97 (>89); GLUCOSE 113 mg/dL (70-100); HDL CHOLESTEROL 52 mg/dL; LDL CHOLESTEROL,CALCULATED 100 mg/dL; LDL/HDL RATIO 1.9 (<4.4); POTASSIUM 3.8 mmol/L (3.5-5.0); SODIUM 137 mmol/L (135-145); TOTAL PROTEIN 7.7 g/dL (6.7-8.2); TRIGLYCERIDES 77 mg/dL; VLDL CHOLESTEROL 15 mg/dL
[2022-06-15 13:25] LABS: THYROID STIMULATING HORMONE 3.42 uIU/mL (0.34-5.60)
[2022-06-15 13:35] LABS: ESTIMATED AVERAGE GLUCOSE 143 mg/dL (70-100); HEMOGLOBIN A1c% 6.6 % (4.27-6.07)
== END 2022-06-15 08:12 | disposition home or self-care (01) ==
LOC: LAB.N 08:11
PROVIDERS: ATTEND Nurse Practitioner Family
DX: I10 Essential (primary) hypertension (principal); E66.01 Morbid (severe) obesity due to excess calories; G93.2 Benign intracranial hypertension
CPT/HCPCS: 36415; 80053; 80061; 83036; 83721; 84443; 85025

== ENCOUNTER 2022-09-23 09:09 | Outpatient (CLI) | payer OTHER ==
[2022-09-23 12:02] LABS: BASOPHILS % (AUTO) 0.2 %; EOSINOPHILS # (AUTO) 0.1 10^3/uL (0.0-0.7); EOSINOPHILS % (AUTO) 1.2 %; HCT - HEMATOCRIT 39.5 % (37.0-47.0); HGB - HEMOGLOBIN 12.2 g/dL (12.0-16.0); LYMPHOCYTES % (AUTO) 34.4 %; MEAN CORPUSCULAR HEMOGLOBIN 26.3 pg (27.0-31.0); MEAN CORPUSCULAR HGB CONC 30.9 g/dL (32.0-36.0); MEAN CORPUSCULAR VOLUME 85.1 fL (81.0-99.0); MEAN PLATELET VOLUME 12.4 fL (7.9-10.8); MONOCYTES # (AUTO) 0.5 10^3/uL (0.0-1.0); MONOCYTES % (AUTO) 5.9 %; NEUTROPHILS % (AUTO) 58.1 %; PLT - PLATELET COUNT 290 10^3/uL (130-450); RED BLOOD COUNT 4.64 10^6/uL (4.20-5.40); RED CELL DISTRIBUTION WIDTH 14.1 % (12.0-15.0); WHITE BLOOD COUNT 8.7 x10^3/uL (4.8-10.8)
[2022-09-23 12:25] LABS: PARTIAL THROMBOPLASTIN TIME 33.9 secs (24.9-33.3)
[2022-09-23 13:41] LABS: ALBUMIN 3.9 g/dL (3.2-5.5); BILIRUBIN,TOTAL 0.5 mg/dL (0.2-1.0); CALCIUM 8.9 mg/dL (8.5-10.3); CREATININE 0.9 mg/dL (0.4-1.0); POTASSIUM 3.5 mmol/L (3.5-5.0); TOTAL PROTEIN 7.9 g/dL (6.7-8.2)
[2022-09-23 13:49] LABS: THYROID STIMULATING HORMONE 2.21 uIU/mL (0.34-5.60)
[2022-09-23 13:50] LABS: FREE T3 3.29 pg/mL (2.5-3.9)
[2022-09-23 13:55] LABS: FERRITIN 15.7 ng/mL (11.0-306.8)
[2022-09-23 13:57] LABS: FOLATE 8.91 ng/mL (5.90 - >24.8)
[2022-09-23 14:01] LABS: ESTIMATED AVERAGE GLUCOSE 137 mg/dL (70-100); HEMOGLOBIN A1c% 6.4 % (4.27-6.07)
== END 2022-09-23 09:10 | disposition home or self-care (01) ==
LOC: LAB.N 09:09
PROVIDERS: ATTEND Surgery
DX: Z01.812 Encounter for preprocedural laboratory examination (principal); E55.9 Vitamin D deficiency, unspecified; E63.9 Nutritional deficiency, unspecified
CPT/HCPCS: 36415; 80053; 82306; 82607; 82728; 82746; 83036; 83540; 84425; 84443; 84466; 84481; 85025; 85610; 85730

== ENCOUNTER 2022-11-02 08:00 | Outpatient (CLI) | payer OTHER ==
[2022-11-02 21:02] LABS: CREATININE 0.8 mg/dL (0.4-1.0); POTASSIUM 3.4 mmol/L (3.5-5.0)
== END 2022-11-02 23:59 | disposition home or self-care (01) ==
LOC: LAB.N 08:00
PROVIDERS: ATTEND Family Medicine
DX: M79.602 Pain in left arm (principal)
CPT/HCPCS: 36415; 80048; 84484

== ENCOUNTER 2023-01-08 10:11 | Outpatient (CLI) | payer OTHER ==
--- NOTE | 2023-01-08 11:14 | XRAY Report ---
PROCEDURE: Chest 2 View X-Ray INDICATIONS: DYSPNEA AT REST, ACUTE COUGH TECHNIQUE: 2 views of the chest were acquired. COMPARISON: CXR 02/07/2021. FINDINGS: Surgical changes and devices: Cholecystectomy clips. Lungs and pleura: No pleural effusions or pneumothorax. Lungs are clear. Mediastinum: Mediastinal contours appear normal. Heart size is normal. Bones and chest wall: No suspicious bony lesions. Overlying soft tissues appear unremarkable. IMPRESSION: No acute cardiopulmonary process. Reviewed by: David Beavers MD on 01/08/2023 11:13 AM PDT Approved by: David Beavers MD on 01/08/2023 11:13 AM PDT Station ID: [id number]
== END 2023-01-08 10:12 | disposition home or self-care (01) ==
LOC: DI 10:11
PROVIDERS: ATTEND Registered Nurse
DX: R06.09 Other forms of dyspnea (principal); R05.1 Acute cough

== ENCOUNTER 2023-02-17 09:39 | Outpatient (CLI) | payer OTHER ==
--- NOTE | 2023-02-17 10:22 | Sleep Patient Instructions ---
Sleep Center Visit Summary - Patient Visit Information Reason for Visit: First Compliance visit with PAP therapy - Patient Instructions Additional Instructions: You were here for follow up of CPAP therapy. You will be continued on CPAP therapy with pressure at 11-15 cmH2O. Please let us know if the pressure change is uncomfortable and we can make further adjustments of the pressure. I have added a mask fitting for you to try a different mask. You should follow up with sleep care in 1-2 months. You may contact us sooner for any questions or concerns. - Clinic Information Contact: [facility] [address] [place] [id number] [email or web address] T: [phone]
--- NOTE | 2023-02-17 10:27 | SLEEP CARE CONSULTATION ---
Information from patient questionnaire entered by Miryam Newsome. I have reviewed and concur with the information entered by Miryam Newsome. This document represents the service I personally performed and the decisions made by , Malia Vivas ARNP. History of Present Illness Service Date and Time: 02/17/2023 0939 Previous diagnosis: Very Severe, Obstructive Sleep Apnea-Hypopnea Syndrome AHI: 67.6 (in 03/2022) Reason for follow up: first compliance Equipment type: CPAP (RESMED 11, SET UP 08/13/2022) Equipment obtained from: Other ([facility]; got initial supplies) Mask style: Nasal pillows Backup mask available: No (will keep old mask when replaced) Last cushion change: last week Prior sleep studies: No Type of Sleep Study: Polysomnography (COMPLETED 04/17/22) HPI additional information: MAYTE CASTRO was diagnosed to have very severe, AHI 67.6, obstructive sleep apnea-hypopnea syndrome and returned today for CPAP therapy first compliance follow-up. Sleep Study - Results Type of Sleep Study: Polysomnography (COMPLETED 04/17/22) Prior sleep studies: No CPAP Compliance Data - Data Reviewed with Patient Average duration of nightly device use: 3 hours 24 minutes Compliance rate %: 17 (15/30 days used; 18/180 days used due to illness) Current pressure setting (cmH2O): 4-15 (median 11.1, avg 14.2, max 14.6) Average residual AHI: 3.2 Central apnea: 0.1 Obstructive apnea: 2.1 Hypopnea: 0.4 Average large leak: 3.8 L/min Subjective Missed days of use due to: reports: mask issues (mask is coming off at night), illness (has had many respiratory issues) Patient concerns: reports: air blowing in eyes, dry mouth, nose, throat (at times). denies: aerophagia, mask discomfort, mask leak noise, condensation in mask/hose, nasal congestion, epistaxis Observed to snore while using device: No Current pressure setting perceived as: comfortable On therapy, patient: reports: sleeping better, awakening more refreshed, being more awake and alert during the day, more rested overall, other (blood pressure better; migraines reduced). denies: drowsiness while driving Initial [place] Sleepiness Scale score: 5 (04/14/22) Current [place] Sleepiness Scale score: 5 (02/16/23) Allergies and Home Medications Known drug allergies: Yes (as listed) Drug allergies reviewed: Yes Home medication list reviewed: Yes (inhaler and vitamins) Allergy and home medication list: Allergies acetaminophen [From Percocet] Allergy (Verified 02/16/23 12:31) Anaphylaxis amphetamine [From Adderall] Allergy (Verified 02/16/23 12:31) dextroamphetamine [From Adderall] Allergy (Verified 02/16/23 12:31) oxycodone [From Percocet] Allergy (Verified 02/16/23 12:31) Anaphylaxis Penicillins Allergy (Verified 02/16/23 12:31) Anaphylaxis pineapple Allergy (Verified 02/16/23 12:31) Unknown tramadol Allergy (Verified 02/16/23 12:31) Anaphylaxis Review of Systems Review of systems same as previous: Yes (no changes) Physical Exam Vital signs obtained and entered by: MIRYAM Myers MA Blood Pressure: 126/97 (RIGHT) Cuff size: wrist Heart Rate: 93 O2 Saturation: 99 Height: 5 ft 2 in Weight: 305 lb 9.6 oz Weight change since last visit: 12 lb gain Body Mass Index: 55.9 BMI Classification: Morbidly Obese Impression and Plan 1. Obstructive Sleep Apnea-Hypopnea Syndrome, very severe, with poor treatment compliance and good apnea control. On CPAP therapy, the patient has better sleep quality and is more rested overall. She has been getting more air leaking in her face and would like to try a different type of mask. A mask refitting will be added to her prescription. The patients pressure will be changed to autoCPAP 11-15 cmH20 to reflect pressure being used. Patient advised to contact me if pressure change is uncomfortable so that it can be adjusted. Goals for apnea control discussed. Patient's apnea severity and rationale for treatment to reduce apnea, improve sleep quality and reduce cardiovascular and cerebrovascular events was reviewed. I also reviewed the benefit of consistent device use of CPAP for hypertension and migraines. 2. Obesity, unspecified. Currently patients BMI is 55.9. She is trying to lose weight. She is in the process of getting bariatric surgery. Obesity increases the risk of apnea, CPAP pressure requirements and overall health risks especially cardiovascular and diabetes. Thus patient is advised to continue to try to lose weight. * Change auto CPAP pressure to 11-15 cmH2O * Mask refitting * Notify me if snoring with mask or feeling that the pressure is too much or too little * Continue to try to lose weight * Call this office if any problems using CPAP * Return for follow up in 1-2 months, or sooner if concerns arise Counseling Topics: Spare mask, Weight loss health impact Prescriptions: Other (mask refitting and pressure change) Follow up with Sleep Care in: 1-2 months Visit Type: In Office Time Spent with Patient (minutes): 32 Provider Statement: I spent 100% of the Face to Face Visit with the patient with greater than 50% spent counseling the patient and coordination of care.
[2023-02-17 10:34] VITALS: BP 126/97; O2SAT 99
== END 2023-02-17 09:40 | disposition home or self-care (01) ==
LOC: SC 09:39
PROVIDERS: ATTEND Nurse Practitioner Family
DX: G47.33 Obstructive sleep apnea (adult) (pediatric) (principal); Z68.43 Body mass index [BMI] 50.0-59.9, adult; E66.01 Morbid (severe) obesity due to excess calories
CPT/HCPCS: 99212; 99213

== ENCOUNTER 2023-04-27 11:23 | Emergency (ER) | payer OTHER ==
--- NOTE | 2023-04-27 12:36 | ED Physician Documentation ---
PD HPI HEADACHE - Stated complaint Stated Complaint: MIGRAINE,VOMITING,IRREGULAR HR,SOA - Chief complaint Chief Complaint: Neuro - History obtained from History obtained from: Patient - History of Present Illness Timing - onset: How many days ago (2) Timing - onset during: Light activity Timing - duration: Days (2) Timing - details: Gradual onset, Still present Worst headache ever?: No: Worst headache ever? (feels similar to prior migraines just lasting longer than usual. feeling dehydrated too as less PO intake with recent lap band.) Location: Right Quality: Throbbing, Aching Improved by: No: Meds Worsened by: Light, Noise Similar symptoms before: Diagnosis (history of migraines usually treated with Ibuprofen at home and rest. Occasionally lasts longer. Not had improvement in the past with tryptans.) Recently seen: Surgery (lap band gastric Feb 2023 without problems.) Review of Systems Constitutional: denies: Fever, Chills Nose: denies: Rhinorrhea / runny nose, Congestion Throat: denies: Sore throat Respiratory: denies: Cough GI: reports: Nausea. denies: Vomiting, Diarrhea Neurologic: reports: Generalized weakness (with less PO intake the past 1 1/2 months from recent lap band bariatric surgery.). denies: Focal weakness, Numbness PD PAST MEDICAL HISTORY - Past Medical History Past Medical History: Yes Cardiovascular: Hypertension Respiratory: None Neuro: Migraines Endocrine/Autoimmune: None HEALTH INFORMATION CODER: Ovarian cysts - Past Surgical History Past Surgical History: Yes General: Cholecystectomy, Appendectomy, Other /HEALTH INFORMATION CODER: Dilation and currettage - Present Medications Home Medications: Ambulatory Orders Medication Instructions Recorded Confirmed Levonorgestrel 20 Mcg/24H [Mirena] 1 unit IU ONCE 04/14/22 04/27/23 Naproxen 500 mg ORAL BID PRN 04/14/22 04/27/23 acetaZOLAMIDE ER [Diamox ER] 500 mg ORAL BID 04/14/22 04/27/23 Pnv No.95/Ferrous Fum/Folic AC 1 tab ORAL DAILY 02/17/23 04/27/23 [ Caplet] - Allergies Allergies/Adverse Reactions: Allergies Allergy/AdvReac Type Severity Reaction Status Date / Time acetaminophen [From Percocet] Allergy Anaphylaxis Verified 04/27/23 11:35 oxycodone [From Percocet] Allergy Anaphylaxis Verified 04/27/23 11:35 Penicillins Allergy Anaphylaxis Verified 04/27/23 11:35 tramadol Allergy Anaphylaxis Verified 04/27/23 11:35 - Social History Does the pt smoke?: No Smoking Status: Never smoker Does the pt drink ETOH?: No Does the pt have substance abuse?: No - Immunizations Immunizations are current?: Yes - POLST Patient has POLST: No PD ED PE NORMAL - Vitals Vital signs reviewed: Yes - General General: Alert and oriented X 3, Well developed/nourished, Other (appears uncomfortable from headache and prefers lights out. ) - Neck Neck: Supple, no meningeal sign, No adenopathy - Cardiac Cardiac: No murmur. No: RRR (tachycardic but regular. ) - Respiratory Respiratory: Clear bilaterally - Abdomen Abdomen: Soft, Non distended - Derm Derm: Normal color, Warm and dry - Neuro Neuro: Alert and oriented X 3, director professional services 2-12 intact, No motor deficit, No sensory deficit, Normal speech Results - Vitals Vitals: Oxygen O2 Source Room air - Labs Labs: Laboratory Tests 04/27/23 04/27/23 13:45 13:45 WBC 9.0 RBC 4.61 Hgb 12.1 Hct 38.6 MCV 83.7 MCH 26.2 L MCHC 31.3 L RDW 15.5 H Plt Count 232 MPV 11.8 H Neut # (Auto) 6.1 Lymph # (Auto) 2.2 [place] # (Auto) 0.6 Eos # (Auto) 0.0 Baso # (Auto) 0.0 Absolute Nucleated RBC 0.00 Nucleated RBC % 0.0 Sodium 140 Potassium 3.3 L Chloride 112 H Carbon Dioxide 22 Anion Gap 6.0 BUN 8 Creatinine 0.9 Estimated GFR (MDRD) 84 L Glucose 96 Calcium 9.0 Phosphorus 2.4 L Magnesium 2.0 Total Bilirubin 0.4 AST 21 ALT 18 Alkaline Phosphatase 108 Total Protein 7.2 Albumin 3.9 Globulin 3.3 Albumin/Globulin Ratio 1.2 Lipase 30 PD Medical Decision Making - ED course Complexity details: re-evaluated patient (much improved and headache essentially gone after IV fluids and IV compazine, toradol. Seems c/w migraine. ), considered differential (The patient has symptoms consistent with a typical migraine for her but is unrelieved by the usual anti-inflammatory and Zofran she would take. This 1 has persisted 2 days but is still same in character as her migraines.), d/w patient ED course: She has been having vomiting for couple of days and likely under hydrated. She was given IV fluids as well as Toradol Compazine IV with considerable improvement in her headache suggesting consistent with migraine. She is feeling improved and wishes discharge. She did not have any red flags and had not had any recent injury, illness, fevers focal weaknesses or other considerations to suggest need for other imaging or evaluation. I did check basic blood count and electrolytes due to the vomiting etc. These were in the normal range except for slightly low potassium of 3.3. This should correct with resuming oral intake and lack of vomi ting. Departure - Departure Disposition: 01 Home, Self Care Clinical Impression: Migraine headache, Vomiting, Dehydration Condition: Stable Record reviewed to determine appropriate education?: Yes Follow-Up: Janeth Salazar PA-C [Primary Care Provider] - Comments: Continue with usual medications. Tylenol or ibuprofen or such if needed for any persistent headache. It is good that your headache is improved now it will be common for it migraines to occasionally last longer like this. Recheck if a more consistent pattern to that. Otherwise continue with your usual treatments for the simple migraines you get. Forms: PCP List Discharge Date/Time: 04/27/23 14:34
[2023-04-27 12:50] VITALS: O2SAT 100
[2023-04-27] MEDS ORDERED: SODIUM CHLORIDE 0.9% 1,000 ML IV STA (13:07)
[2023-04-27] MEDS ORDERED: PROCHLORPERAZINE 10 MG/2 ML VIAL IVP STA (13:08)
[2023-04-27] MEDS ORDERED: KETOROLAC 15 MG/ML VIAL IVP STA (13:08)
[2023-04-27 13:51] LABS: BASOPHILS % (AUTO) 0.2 %; HCT - HEMATOCRIT 38.6 % (37.0-47.0); HGB - HEMOGLOBIN 12.1 g/dL (12.0-16.0); LYMPHOCYTES # (AUTO) 2.2 10^3/uL (1.5-3.5); LYMPHOCYTES % (AUTO) 24.8 %; MEAN CORPUSCULAR HEMOGLOBIN 26.2 pg (27.0-31.0); MEAN CORPUSCULAR HGB CONC 31.3 g/dL (32.0-36.0); MEAN CORPUSCULAR VOLUME 83.7 fL (81.0-99.0); MEAN PLATELET VOLUME 11.8 fL (7.9-10.8); MONOCYTES # (AUTO) 0.6 10^3/uL (0.0-1.0); NEUTROPHILS # (AUTO) 6.1 10^3/uL (1.5-6.6); NEUTROPHILS % (AUTO) 67.7 %; PLT - PLATELET COUNT 232 10^3/uL (130-450); RED BLOOD COUNT 4.61 10^6/uL (4.20-5.40); RED CELL DISTRIBUTION WIDTH 15.5 % (12.0-15.0)
[2023-04-27 14:05] LABS: ALBUMIN 3.9 g/dL (3.2-5.5); ALBUMIN/GLOBULIN RATIO 1.2 (1.0-2.2); BILIRUBIN,TOTAL 0.4 mg/dL (0.2-1.0); CREATININE 0.9 mg/dL (0.6-1.3); PHOSPHORUS 2.4 mg/dL (2.5-5.0); POTASSIUM 3.3 mmol/L (3.5-4.5); TOTAL PROTEIN 7.2 g/dL (6.4-8.9)
[2023-04-27 14:18] VITALS: BP 128/86
== END 2023-04-27 14:34 | disposition home or self-care (01) ==
LOC: ED 11:23
DX: G43.909 Migraine, unspecified, not intractable, without status migrainosus (principal); E86.0 Dehydration; E87.6 Hypokalemia
CPT/HCPCS: 36415; 80053; 83690; 83735; 84100; 85025; 93005; 96374; 99283

== ENCOUNTER 2023-08-21 14:12 | Outpatient (CLI) | payer OTHER ==
[2023-08-21 18:52] LABS: BASOPHILS % (AUTO) 0.3 %; EOSINOPHILS # (AUTO) 0.1 10^3/uL (0.0-0.7); EOSINOPHILS % (AUTO) 0.8 %; HCT - HEMATOCRIT 42.4 % (37.0-47.0); HGB - HEMOGLOBIN 13.5 g/dL (12.0-16.0); LYMPHOCYTES # (AUTO) 2.2 10^3/uL (1.5-3.5); LYMPHOCYTES % (AUTO) 34.2 %; MEAN CORPUSCULAR HGB CONC 31.8 g/dL (32.0-36.0); MONOCYTES # (AUTO) 0.4 10^3/uL (0.0-1.0); NEUTROPHILS # (AUTO) 3.8 10^3/uL (1.5-6.6); NEUTROPHILS % (AUTO) 58.5 %; PLT - PLATELET COUNT 258 10^3/uL (130-450); RED BLOOD COUNT 4.82 10^6/uL (4.20-5.40); RED CELL DISTRIBUTION WIDTH 14.4 % (12.0-15.0); WHITE BLOOD COUNT 6.5 x10^3/uL (4.8-10.8)
[2023-08-21 19:15] LABS: % IRON SATURATION 19 % (20-50); ALBUMIN 4.5 g/dL (3.2-5.5); ALBUMIN/GLOBULIN RATIO 1.4 (1.0-2.2); ALKALINE PHOSPHATASE 189 IU/L (42-121); ALT ALANINE AMINOTRANSFERASE 42 IU/L (10-60); AST ASPARTATE AMINOTRANSFERASE 22 IU/L (10-42); BILIRUBIN,TOTAL 0.5 mg/dL (0.2-1.0); BUN - BLOOD UREA NITROGEN 10 mg/dL (6-20); CALCIUM 9.7 mg/dL (8.5-10.3); CARBON DIOXIDE - CO2 22 mmol/L (21-32); CHLORIDE 109 mmol/L (101-111); CHOL/HDL RATIO 3.2 (<4.4); CHOLESTEROL 172 mg/dL; GFR - MDRD 75 (>89); GLUCOSE 101 mg/dL (74-104); HDL CHOLESTEROL 54 mg/dL; IRON 62 ug/dL (50-212); LDL CHOLESTEROL,CALCULATED 96 mg/dL; LDL/HDL RATIO 1.8 (<4.4); POTASSIUM 3.4 mmol/L (3.5-4.5); SODIUM 141 mmol/L (135-145); TOTAL IRON BINDING CAPACITY 328 ug/dL (250-450); TOTAL PROTEIN 7.7 g/dL (6.4-8.9); TRANSFERRIN 234 mg/dL (203-362); TRIGLYCERIDES 110 mg/dL (48-352); VLDL CHOLESTEROL 22 mg/dL
[2023-08-21 19:16] LABS: THYROID STIMULATING HORMONE 1.75 uIU/mL (0.34-5.60)
[2023-08-21 19:22] LABS: FERRITIN 46.4 ng/mL (11.0-306.8)
[2023-08-21 19:26] LABS: MICROALBUM/CREATININE RATIO,UR 17.7 ug/mg (<30.0)
[2023-08-22 08:09] LABS: ESTIMATED AVERAGE GLUCOSE 126 mg/dL (70-100)
== END 2023-08-21 14:13 | disposition home or self-care (01) ==
LOC: LAB.N 14:12
PROVIDERS: ATTEND Surgery
DX: E11.69 Type 2 diabetes mellitus with other specified complication (principal); E46 Unspecified protein-calorie malnutrition; E55.9 Vitamin D deficiency, unspecified
CPT/HCPCS: 36415; 80053; 80061; 81599; 82043; 82306; 82570; 82607; 82728; 82746; 83036; 83540; 83721; 84443; 84466; 85025

== ENCOUNTER 2023-12-21 07:59 | Outpatient (CLI) | payer OTHER ==
[2023-12-21 12:29] LABS: BASOPHILS % (AUTO) 0.3 %; EOSINOPHILS # (AUTO) 0.1 10^3/uL (0.0-0.7); EOSINOPHILS % (AUTO) 1.4 %; HCT - HEMATOCRIT 41.8 % (37.0-47.0); HGB - HEMOGLOBIN 13.2 g/dL (12.0-16.0); LYMPHOCYTES # (AUTO) 3.8 10^3/uL (1.5-3.5); LYMPHOCYTES % (AUTO) 39.8 %; MEAN CORPUSCULAR HEMOGLOBIN 28.3 pg (27.0-31.0); MEAN CORPUSCULAR HGB CONC 31.6 g/dL (32.0-36.0); MEAN CORPUSCULAR VOLUME 89.5 fL (81.0-99.0); MEAN PLATELET VOLUME 12.5 fL (7.9-10.8); MONOCYTES # (AUTO) 0.4 10^3/uL (0.0-1.0); MONOCYTES % (AUTO) 4.5 %; NEUTROPHILS # (AUTO) 5.1 10^3/uL (1.5-6.6); NEUTROPHILS % (AUTO) 53.8 %; PLT - PLATELET COUNT 279 10^3/uL (130-450); RED BLOOD COUNT 4.67 10^6/uL (4.20-5.40); RED CELL DISTRIBUTION WIDTH 13.3 % (12.0-15.0); WHITE BLOOD COUNT 9.5 x10^3/uL (4.8-10.8)
[2023-12-21 12:32] LABS: CREATININE 0.9 mg/dL (0.6-1.3); POTASSIUM 3.5 mmol/L (3.5-4.5)
[2023-12-21 12:47] LABS: FERRITIN 33.8 ng/mL (11.0-306.8)
[2023-12-21 12:50] LABS: ESTIMATED AVERAGE GLUCOSE 114 mg/dL (70-100); HEMOGLOBIN A1c% 5.6 % (4.27-6.07)
== END 2023-12-21 08:00 | disposition home or self-care (01) ==
LOC: LAB.N 07:59
PROVIDERS: ATTEND Physician Assistant Medical
DX: E11.69 Type 2 diabetes mellitus with other specified complication (principal); Z98.84 Bariatric surgery status
CPT/HCPCS: 36415; 80048; 82306; 82607; 82728; 83036; 85025